=== PATIENT | male | born 1965 | race Caucasian/White ===

== ENCOUNTER → 2017-04-02 | Outpatient (REF) | LOC: M SMT 09:03 | DX: M51.36 Other intervertebral disc degeneration, lumbar region (principal) ==

== ENCOUNTER → 2020-08-22 | Outpatient (REF) ==
[~2020-08-22] MED LIST: ASPI325T; BENI20TA11; CRES20TA; KEFL500C; NEXI1CAP3; SYNT100T; prestique
--- NOTE | 2020-08-22 13:23 | REPPI ---
INDICATION: DISABILIY DIAGNOSIS DETERMINATION, LOW BACK PAIN COMPARISON: 04/02/2017 TECHNIQUE: AP, lateral, coned-down views of the lumbar spine. FINDINGS: Endplate sclerosis with marginal spurring and mild facet hypertrophy noted at multiple levels. Disc space narrowing at L5-S1 and to a lesser extent L3-4 and L4-5. No acute fracture/compression injury or subluxation. IMPRESSION: 1. Moderate multilevel degenerative spondylosis. 2. No acute fracture or dislocation. <Electronically signed by Chilango Bell > 08/22/20 [id number]
== END ==
LOC: M PLAIMG 12:54
PROVIDERS: ATTEND Internal Medicine
DX: Z02.71 Encounter for disability determination (principal); M51.36 Other intervertebral disc degeneration, lumbar region; M51.37 Other intervertebral disc degeneration, lumbosacral region

== ENCOUNTER → 2020-11-03 | Outpatient (CLI) | payer OTHER, BC ==
--- NOTE | 2020-11-03 13:38 | REP ---
INDICATION: PAIN IN RIGHT FOOT. COMPARISON: None. TECHNIQUE: Two views right calcaneus. FINDINGS: There is no evidence of fracture or dislocation. In inferior calcaneal spur measures approximately 6 mm in length. I see no other significant finding. IMPRESSION: Inferior calcaneal spurring. <Electronically signed by Darius Rangel > 11/03/20 [id number]
== END ==
LOC: M SOG 13:22
PROVIDERS: ATTEND Orthopaedic Surgery Adult Reconstructive Orthopaedic Surgery
DX: M77.31 Calcaneal spur, right foot (principal)

== ENCOUNTER → 2020-12-25 | Outpatient (CLI) | payer BC ==
[~2020-12-25] MED LIST changes: +FARX1TAB3; +GASTROGRAFIN SOLUTION 30ML (Q9963) As Ordered ONE; +GLIP10TA18; +ISOVUE-370 76% 100ML VIAL As Ordered ONE; +LEVO100T5; +LISI20TA33; +METH-1164; +OXYC1TAB23; +SIMV40TA20; +TRUL10IN
--- NOTE | 2020-12-26 17:54 | REP ---
INDICATION: THROMBOCYTOPENIA COMPARISON: None TECHNIQUE: Axial contrast enhanced images from the thoracic inlet to the upper abdomen with coronal and sagittal reformations using 100 ml Isovue 370 intravenous contrast material. Examination is followed by CT of the abdomen and pelvis. This CT examination was performed using the following dose reduction techniques: Automated exposure control, adjustment of mA and/or kv according to the patient's size, and use of iterative reconstruction technique. FINDINGS: Lung peña demonstrate acute versus chronic bibasilar fibroatelectatic changes along with mild underlying emphysematous disease. No focal consolidation or effusion. No pneumothorax. Tracheobronchial tree is patent. Few nonspecific mediastinal lymph nodes are identified. Atherosclerotic changes to the coronary arteries noted. Aorta, pulmonary vasculature, and heart/pericardium are otherwise relatively normal. Surrounding musculoskeletal structures intact and without acute osseous abnormality. IMPRESSION: Mild emphysematous disease with mild acute versus chronic basilar fibroatelectatic changes. Consider short-term 3 to 6 month follow-up as no prior examinations are available for comparison. . <Electronically signed by Chilango Bell > 12/26/20 [id number]
--- NOTE | 2020-12-26 18:02 | REP ---
INDICATION: THROMBOCYTOPENIA. COMPARISON: None TECHNIQUE: Axial contrast-enhanced images from the lung bases to the pubic symphysis using oral and 100 cc Isovue 370 intravenous contrast material. Coronal and sagittal reformations obtained along with delayed images of the abdomen. This CT examination was performed using the following dose reduction techniques: Automated exposure control, adjustment of mA and/or kv according to the patient's size, and the use of iterative reconstruction technique. FINDINGS: Hepatosteatosis along with hepatosplenomegaly noted. Pancreas, gallbladder, bilateral adrenal glands and right kidney are normal. Left kidney includes 3.3 cm and subcentimeter benign appearing cysts along with 1.1 cm isodense lesion along the posterior cortex which may represent complex proteinaceous cyst versus small mass (series 205; image 61). The enteric system including stomach, small, and large bowel appears normal. No evidence for obstruction or acute inflammatory process. Few scattered sigmoid diverticula noted without acute diverticulitis. Pelvis demonstrates normal bladder and age-appropriate prostate/seminal vesicles. No ascites. No free air. No intraperitoneal or retroperitoneal adenopathy. Abdominal aorta and vasculature appear normal. Musculoskeletal structures are intact and without acute osseous abnormality. IMPRESSION: 1. Hepatosplenomegaly and hepatosteatosis. 2. Left renal cysts along with 1.1 cm isodense left renal lesion possibly representing complex cyst versus small mass. Consider ultrasound follow-up and if necessary repeat pre and postcontrast CT of the abdomen at 6-9 months. <Electronically signed by Chilango Bell > 12/26/20 [id number]
== END ==
LOC: M RAD 13:43
PROVIDERS: ATTEND Internal Medicine Hematology & Oncology
DX: D69.6 Thrombocytopenia, unspecified (principal); K74.60 Unspecified cirrhosis of liver; K76.0 Fatty (change of) liver, not elsewhere classified; R16.2 Hepatomegaly with splenomegaly, not elsewhere classified; N28.1 Cyst of kidney, acquired
CPT/HCPCS: 71260; 74177; Q9963; Q9967

== ENCOUNTER → 2021-01-03 | Outpatient (CLI) | payer BC ==
[~2021-01-03] MED LIST changes: -GASTROGRAFIN SOLUTION 30ML (Q9963) As Ordered ONE; -ISOVUE-370 76% 100ML VIAL As Ordered ONE
[2021-01-03 18:36] LABS: HEMOGLOBIN A1c 8.2 %
== END ==
LOC: M PLALAB 10:07
PROVIDERS: ATTEND Nurse Practitioner Family
DX: E11.69 Type 2 diabetes mellitus with other specified complication (principal)

== ENCOUNTER → 2021-02-15 | Outpatient (CLI) | payer BC ==
[2021-02-15 15:26] LABS: BASO % 0.7 % (0.0-1.0); HEMATOCRIT 46.5 % (42.0-52.0); HEMOGLOBIN 15.3 g/dl (13.5-17.5); LYMPH # 1.5 10^3/uL (1.5-5.0); LYMPH % 36.6 % (24.0-44.0); MEAN CORPUSCULAR HEMOGLOBIN 29.1 pg (27.0-33.0); MEAN CORPUSCULAR HGB CONC 32.9 g/dl (32.0-36.5); MEAN CORPUSCULAR VOLUME 88.4 fl (80.0-96.0); MONO # 0.3 10^3/uL (0.0-0.8); MONO % 7.4 % (2.0-8.0); NEUTROPHILS # 2.3 10^3/uL (1.5-8.5); NEUTROPHILS % 53.8 % (36.0-66.0); PLATELET COUNT, AUTOMATED 109 10^3/uL (150-450); RED BLOOD COUNT 5.26 10^6/uL (4.30-6.10); WHITE BLOOD COUNT 4.2 10^3/uL (4.0-10.0)
[2021-02-15 16:53] LABS: ALBUMIN 3.9 GM/DL (3.2-5.2); BILIRUBIN,DIRECT 0.1 MG/DL (0.0-0.2); BILIRUBIN,TOTAL 0.5 MG/DL (0.2-1.0); HEPATITIS B CORE ANTIBODY IGM NEGATIVE (NEGATIVE); HEPATITIS B SURFACE ANTIGEN NEGATIVE (NEGATIVE); HEPATITIS C VIRUS ABY INDEX 0.1 INDEX (<0.8); IRON (FE) 92 UG/DL (65-175); PERCENT SATURATION 26.4 % (19.7-50.0); TOTAL IRON BINDING CAPACITY 348 UG/DL (250-450)
[2021-02-15 18:57] LABS: ALT/SGPT 91 U/L (12-78); TOTAL PROTEIN 7.4 GM/DL (6.4-8.2)
== END ==
LOC: M PLALAB 14:00
PROVIDERS: ATTEND Internal Medicine Gastroenterology
DX: K75.81 Nonalcoholic steatohepatitis (NASH) (principal)

== ENCOUNTER → 2021-03-28 | Outpatient (CLI) | payer BC ==
[~2021-03-28] MED LIST changes: +ESOM40CA35 PO; -FARX1TAB3; +FARX1TAB3 PO; -GLIP10TA18; +GLIP10TA18 PO; -LEVO100T5; +LEVO100T5 PO; -LISI20TA33; +LISI20TA33 PO; -METH-1164; +METH-1164 PO; -OXYC1TAB23; +OXYC1TAB23 PO; -SIMV40TA20; +SIMV40TA20 PO; -TRUL10IN; +TRUL10IN SC
== END ==
LOC: M LABSMTC 11:25
PROVIDERS: ATTEND Anesthesiology
DX: Z01.818 Encounter for other preprocedural examination (principal); Z11.52 Encounter for screening for COVID-19

== ENCOUNTER 2021-03-29 13:33 | Outpatient (CLI) | payer BC ==
[~2021-03-29] VITALS: Ht 177.8 cm; Wt 120.5 kg
[2021-03-29 13:40] VITALS: BP 161/86
[2021-03-29] MEDS ORDERED: VEDOLIZUMAB 300 MG in NS 250 ML IV ONE (14:00)
[2021-03-29 15:30] VITALS: BP 136/74
== END 2021-03-29 15:30 | disposition home or self-care (01) ==
LOC: M INFU 13:33
PROVIDERS: ATTEND Internal Medicine Gastroenterology
DX: K50.90 Crohn's disease, unspecified, without complications (principal)
CPT/HCPCS: 96365; J3380

== ENCOUNTER 2021-04-02 06:35 | Day surgery (SDC) | payer BC ==
[~2021-04-02] VITALS: Ht 177.8 cm; Wt 117.5 kg
[~2021-04-02 06:35] MED LIST changes: +NS 1,000 ML IV SCH
[2021-04-02] MEDS ORDERED: fentaNYL 100 MCG/2 ML INJECTION (J3010) As Ordered ONE (07:05)
[2021-04-02] MEDS ORDERED: LIDOCAINE 2% 100MG/5ML SDV (FOR ANES.) As Ordered ONE (07:06)
[2021-04-02] MEDS ORDERED: propofoL 500 MG/50 ML VIAL As Ordered ONE (07:06)
--- NOTE | 2021-04-02 07:57 | ROOR ---
Patient Name: Chintan Price Procedure Date: 04/02/2021 7:33 AM Date of : 1965 Age: 55 Room: [facility] Gender: Male Note Status: Finalized Procedure: Upper GI endoscopy Indications: Cirrhosis rule out esophageal varices Providers: Harjit Gorman MD Referring MD: Laxmi Olmos NP Requesting Provider: Medicines: Monitored Anesthesia Care Complications: No immediate complications. Procedure: Pre-Anesthesia Assessment: - The heart rate, respiratory rate, oxygen saturations, blood pressure, adequacy of pulmonary ventilation, and response to care were monitored throughout the procedure. The Endoscope was introduced through the mouth, and advanced to the second part of duodenum. The upper GI endoscopy was accomplished without difficulty. The patient tolerated the procedure well. Findings: The examined duodenum was normal. The entire examined stomach was normal. Four columns of non-bleeding grade II varices were found in the lower third of the esophagus,. They were medium in size. No stigmata of recent bleeding were evident and red williams signs were present. Four bands were successfully placed with complete eradication, resulting in deflation of varices. There was no bleeding during the maneuver. Impression: - Normal examined duodenum. - Normal stomach. - Non-bleeding grade II esophageal varices. Completely eradicated. Banded. - No specimens collected. Recommendation: - Repeat upper endoscopy in 1 month for retreatment. - My office will call you to reschedule the procedure. - Start/continue a Non-selective Beta Pam such as Propranolol or Nadolol, titrate to heart rate. - Use Viscous Lidocaine at 4% 5 mL PO q 4 hrs (as needed) for 1 day. - (the script was sent to your pharmacy on file) Procedure Code(s): --- Professional --- 54686, Esophagogastroduodenoscopy, flexible, transoral; with band ligation of esophageal/gastric varices Diagnosis Code(s): --- Professional --- K74.60, Unspecified cirrhosis of liver I85.10, Secondary esophageal varices without bleeding CPT copyright 2019 [employer]. All rights reserved. The codes documented in this report are preliminary and upon assistant clinical nurse manager review may be revised to meet current compliance requirements. Harjit Gorman MD Harjit Gorman MD 04/02/2021 7:57:13 AM Electronically signed by Harjit Groman MD Number of Addenda: 0 Note Initiated On: 04/02/2021 7:33 AM Estimated Blood Loss: Estimated blood loss: none.
[2021-04-02] MEDS ORDERED: propofoL 200 MG/20 ML VIAL As Ordered ONE (08:12)
[2021-04-02 08:45] VITALS: BP 143/92
--- NOTE | 2021-04-02 08:46 | ROOR ---
Patient Name: Chintan Price Procedure Date: 04/02/2021 7:35 AM Date of : 1965 Age: 55 Room: [facility] Gender: Male Note Status: Finalized Procedure: Colonoscopy Indications: Follow-up of Crohn's disease of the small bowel and colon Providers: Harjit Gorman MD Referring MD: Laxmi Olmos NP Requesting Provider: Medicines: Monitored Anesthesia Care Complications: No immediate complications. Procedure: Pre-Anesthesia Assessment: - The heart rate, respiratory rate, oxygen saturations, blood pressure, adequacy of pulmonary ventilation, and response to care were monitored throughout the procedure. The Colonoscope was introduced through the anus and advanced to 15 cm into the ileum. The colonoscopy was performed without difficulty. The patient tolerated the procedure well. The quality of the bowel preparation was good. Findings: The perianal and digital rectal examinations were normal. A scattered area of mucosa in the terminal ileum was mildly erythematous. A scattered area of mildly erythematous mucosa was found in the ascending colon and in the cecum. Internal hemorrhoids were found during retroflexion. The hemorrhoids were medium-sized. Five sessile polyps were found in the sigmoid colon and ascending colon. The polyps were diminutive in size. These polyps were removed with a cold snare. Resection and retrieval were complete. Several biopsies were obtained with cold large-capacity forceps for surveillance in the terminal ileum, as well as random biopsies in the ascending colon, several random biopsies in the transverse colon and random biopsies in the descending colon. Background biopsies were taken for histology with a cold forceps from the entire colon and colon and terminal ileum. These biopsy specimens were sent to Pathology. Impression: - Five diminutive polyps in the sigmoid colon and in the ascending colon, removed with a cold snare. Resected and retrieved. - Two 3 mm scattered erythematous spots in the terminal ileum. - biopsied - Three 3 mm scattered erythematous spots in the ascending colon and in the cecum. - biopsied - Moderate to large Internal hemorrhoids. - Biopsies performed in the terminal ileum, in the ascending colon, in the transverse colon and in the descending and sigmoid/rectum. - (I do not see any significant active inflammation in terminal ileum and colon. Crohns disease appears to be in remission.) Recommendation: - Continue present medications. (Entyvio) - Repeat colonoscopy in 3 years for surveillance. Procedure Code(s): --- Professional --- 27815, Colonoscopy, flexible; with removal of tumor(s), polyp(s), or other lesion(s) by snare technique [id number], 59, Colonoscopy, flexible; with biopsy, single or multiple Diagnosis Code(s): --- Professional --- K50.80, Crohn's disease of both small and large intestine without complications K63.5, Polyp of colon K64.8, Other hemorrhoids K63.89, Other specified diseases of intestine CPT copyright 2019 [employer]. All rights reserved. The codes documented in this report are preliminary and upon school leader review may be revised to meet current compliance requirements. Harjit Gorman MD Harjit Gorman MD 04/02/2021 8:45:42 AM Electronically signed by Harjit Gorman MD Number of Addenda: 0 Note Initiated On: 04/02/2021 7:35 AM Estimated Blood Loss: Estimated blood loss: none.
== END 2021-04-02 09:27 | disposition home or self-care (01) ==
LOC: M OPP 06:35
PROVIDERS: ATTEND Internal Medicine Gastroenterology
DX: K50.80 Crohn's disease of both small and large intestine without complications (principal); D12.6 Benign neoplasm of colon, unspecified; K64.8 Other hemorrhoids; K63.89 Other specified diseases of intestine; K74.60 Unspecified cirrhosis of liver; I85.10 Secondary esophageal varices without bleeding; Z79.899 Other long term (current) drug therapy; Z87.891 Personal history of nicotine dependence; Z79.84 Long term (current) use of oral hypoglycemic drugs
CPT/HCPCS: 43244; 45380; 45385; 88305; J3010

== ENCOUNTER → 2021-04-26 | Outpatient (CLI) | payer BC ==
[~2021-04-26] MED LIST changes: +CARV3.12 PO; +ENTY1INJ IV; +LIDO2SOL17 PO; -NS 1,000 ML IV SCH; +RA M200C4 PO
== END ==
LOC: M LABSMTC 10:46
PROVIDERS: ATTEND Anesthesiology
DX: Z20.828 Contact with and (suspected) exposure to other viral communicable diseases (principal); Z11.52 Encounter for screening for COVID-19

== ENCOUNTER 2021-05-01 06:27 | Day surgery (SDC) | payer BC ==
[~2021-05-01] VITALS: Ht 177.8 cm; Wt 116.1 kg
[~2021-05-01 06:27] MED LIST changes: +NS 1,000 ML IV ONE
[2021-05-01] MEDS ORDERED: fentaNYL 100 MCG/2 ML INJECTION (J3010) As Ordered ONE (07:18)
[2021-05-01] MEDS ORDERED: propofoL 200 MG/20 ML VIAL As Ordered ONE (07:18)
[2021-05-01] MEDS ORDERED: LIDOCAINE 2% 100MG/5ML SDV (FOR ANES.) As Ordered ONE (07:18)
[2021-05-01 08:13] VITALS: BP 175/74
== END 2021-05-01 08:14 | disposition home or self-care (01) ==
LOC: M OPP 06:27
PROVIDERS: ATTEND Internal Medicine Gastroenterology
DX: I85.00 Esophageal varices without bleeding (principal); K50.90 Crohn's disease, unspecified, without complications; K74.60 Unspecified cirrhosis of liver; Z79.891 Long term (current) use of opiate analgesic; Z79.899 Other long term (current) drug therapy; Z87.891 Personal history of nicotine dependence
CPT/HCPCS: 43244; J3010

== ENCOUNTER 2021-05-10 13:00 | Outpatient (CLI) | payer BC ==
[~2021-05-10] VITALS: Ht 208.3 cm; Wt 119.7 kg
[~2021-05-10 13:00] MED LIST changes: -NS 1,000 ML IV ONE
[2021-05-10 13:05] VITALS: BP 138/77
[2021-05-10] MEDS ORDERED: VEDOLIZUMAB 300 MG in NS 250 ML IV ONE (13:30)
[2021-05-10 14:35] VITALS: BP 147/80
== END 2021-05-10 14:50 | disposition home or self-care (01) ==
LOC: M INFU 13:00
PROVIDERS: ATTEND Internal Medicine Gastroenterology
DX: K50.90 Crohn's disease, unspecified, without complications (principal)
CPT/HCPCS: 96365; J3380

== ENCOUNTER → 2021-05-26 | Outpatient (CLI) | payer BC ==
[~2021-05-26] MED LIST changes: +HYDR-3363 PO
== END ==
LOC: M LABSMTC 10:32
PROVIDERS: ATTEND Anesthesiology
DX: Z01.818 Encounter for other preprocedural examination (principal); Z11.52 Encounter for screening for COVID-19

== ENCOUNTER 2021-05-31 11:41 | Day surgery (SDC) | payer BC ==
[~2021-05-31] VITALS: Ht 177.8 cm; Wt 115.6 kg
[~2021-05-31 11:41] MED LIST changes: +NS 1,000 ML IV ONE
[2021-05-31] MEDS ORDERED: LIDOCAINE 2% 100MG/5ML SDV (FOR ANES.) As Ordered ONE (12:59)
[2021-05-31] MEDS ORDERED: propofoL 200 MG/20 ML VIAL As Ordered ONE (13:00)
[2021-05-31] MEDS ORDERED: ePHEDrine SULFATE 25 MG/5 ML(5MG/ML) SYRINGE As Ordered ONE (13:22)
[2021-05-31] MEDS ORDERED: fentaNYL 100 MCG/2 ML INJECTION As Ordered ONE (13:41)
[2021-05-31 14:40] VITALS: BP 142/81
== END 2021-05-31 14:59 | disposition home or self-care (01) ==
LOC: M OPP 11:41
PROVIDERS: ATTEND Internal Medicine Gastroenterology
DX: K74.60 Unspecified cirrhosis of liver (principal); I85.00 Esophageal varices without bleeding; J44.9 Chronic obstructive pulmonary disease, unspecified; E11.9 Type 2 diabetes mellitus without complications; Z79.891 Long term (current) use of opiate analgesic; Z79.899 Other long term (current) drug therapy
CPT/HCPCS: 43244; J3010

== ENCOUNTER → 2021-06-27 | Outpatient (CLI) | payer BC ==
[~2021-06-27] MED LIST changes: -NS 1,000 ML IV ONE
== END ==
LOC: M LABSMTC 11:01
PROVIDERS: ATTEND Anesthesiology
DX: Z11.52 Encounter for screening for COVID-19 (principal); Z20.822 Contact with and (suspected) exposure to COVID-19

== ENCOUNTER 2021-07-02 06:48 | Day surgery (SDC) | payer BC ==
[~2021-07-02] VITALS: Ht 177.8 cm; Wt 115.7 kg
[~2021-07-02 06:48] MED LIST changes: +NS 1,000 ML IV ONE
[2021-07-02] MEDS ORDERED: LIDOCAINE 2% 100MG/5ML SDV (FOR ANES.) As Ordered ONE (07:41)
[2021-07-02] MEDS ORDERED: propofoL 200 MG/20 ML VIAL As Ordered ONE (07:41)
[2021-07-02] MEDS ORDERED: fentaNYL 100 MCG/2 ML INJECTION As Ordered ONE (07:41)
[2021-07-02 08:27] VITALS: BP 163/91
== END 2021-07-02 08:35 | disposition home or self-care (01) ==
LOC: M OPP 06:48
PROVIDERS: ATTEND Internal Medicine Gastroenterology
DX: I85.00 Esophageal varices without bleeding (principal); K74.60 Unspecified cirrhosis of liver; Z79.891 Long term (current) use of opiate analgesic; Z79.899 Other long term (current) drug therapy; Z87.891 Personal history of nicotine dependence
CPT/HCPCS: 43244; J3010

== ENCOUNTER → 2021-07-03 | Outpatient (CLI) | payer BC ==
[~2021-07-03] MED LIST changes: -NS 1,000 ML IV ONE
[2021-07-03 14:32] LABS: HEMOGLOBIN A1c 8.3 %
[2021-07-03 14:44] LABS: CREATININE, URINE 46.1 MG/DL; MALB URINE SIEMENS < 5.0 MG/L; MAU/CREAT RATIO 10.8 MCG/MG (0.0-30.0)
[2021-07-03 14:45] LABS: ALBUMIN 4.2 GM/DL (3.2-5.2); ALT/SGPT 81 U/L (12-78); BILIRUBIN,TOTAL 0.7 MG/DL (0.2-1.0); BLOOD UREA NITROGEN 11 MG/DL (7-18); CALCIUM LEVEL 8.9 MG/DL (8.5-10.1); CARBON DIOXIDE LEVEL 29 MEQ/L (21-32); CHLORIDE LEVEL 105 MEQ/L (98-107); CHOLESTEROL LEVEL 188 MG/DL (<200); CHOLESTEROL RISK RATIO 4.947 (<5); CREATININE FOR GFR 0.79 MG/DL (0.70-1.30); FREE T4 1.29 NG/DL (0.76-1.46); GLOMERULAR FILTRATION RATE > 60.0 (>56); GLUCOSE, FASTING 229 MG/DL (70-100); HDL CHOLESTEROL 38 MG/DL (>40); LDL CHOLESTEROL 73 MG/DL (<100); NON-HDL-C 150 MG/DL; POTASSIUM SERUM 4.3 MEQ/L (3.5-5.1); SODIUM LEVEL 138 MEQ/L (136-145); TOTAL PROTEIN 7.7 GM/DL (6.4-8.2); TRIGLYCERIDES LEVEL 387 MG/DL (<150)
== END ==
LOC: M PLALAB 11:06
PROVIDERS: ATTEND Nurse Practitioner Family
DX: E11.69 Type 2 diabetes mellitus with other specified complication (principal); E03.9 Hypothyroidism, unspecified; I10 Essential (primary) hypertension

== ENCOUNTER → 2021-07-13 | Outpatient (CLI) | payer BC ==
[~2021-07-13] MED LIST changes: +GASTROGRAFIN SOLUTION 30ML (Q9963) As Ordered ONE; +ISOVUE-370 76% 100ML VIAL As Ordered ONE
== END ==
LOC: M RAD 11:47
PROVIDERS: ATTEND Internal Medicine Medical Oncology
DX: J44.9 Chronic obstructive pulmonary disease, unspecified (principal); D69.6 Thrombocytopenia, unspecified
CPT/HCPCS: 71260; 74170; Q9963; Q9967

== ENCOUNTER 2021-08-30 13:41 | Outpatient (CLI) | payer BC ==
[~2021-08-30] VITALS: Ht 177.8 cm; Wt 120.0 kg
[~2021-08-30 13:41] MED LIST changes: -GASTROGRAFIN SOLUTION 30ML (Q9963) As Ordered ONE; -ISOVUE-370 76% 100ML VIAL As Ordered ONE; +TRUL0.5I SQ
[2021-08-30 13:45] VITALS: BP 124/77
[2021-08-30] MEDS ORDERED: VEDOLIZUMAB 300 MG in NS 250 ML IV ONE (14:00)
[2021-08-30 14:22] VITALS: BP 124/77
[2021-08-30 15:35] VITALS: BP 133/80
== END 2021-08-30 15:40 | disposition home or self-care (01) ==
LOC: M INFU 13:41
PROVIDERS: ATTEND Internal Medicine Gastroenterology
DX: K50.90 Crohn's disease, unspecified, without complications (principal)
CPT/HCPCS: 96365; J3380

== ENCOUNTER → 2021-09-19 | Outpatient (CLI) | payer BC ==
[2021-09-19 10:58] LABS: BASO % 0.8 % (0.0-1.0); EOS % 1.7 % (0.0-3.0); HEMATOCRIT 40.9 % (42.0-52.0); HEMOGLOBIN 13.7 g/dl (13.5-17.5); LYMPH # 0.9 10^3/uL (1.5-5.0); LYMPH % 37.1 % (24.0-44.0); MEAN CORPUSCULAR HEMOGLOBIN 29.8 pg (27.0-33.0); MEAN CORPUSCULAR HGB CONC 33.5 g/dl (32.0-36.5); MEAN CORPUSCULAR VOLUME 88.9 fl (80.0-96.0); MONO # 0.2 10^3/uL (0.0-0.8); MONO % 8.3 % (2.0-8.0); NEUTROPHILS # 1.2 10^3/uL (1.5-8.5); NEUTROPHILS % 51.7 % (36.0-66.0); WHITE BLOOD COUNT 2.4 10^3/uL (4.0-10.0)
[2021-09-19 10:59] LABS: PLATELET COUNT, AUTOMATED 84 10^3/uL (150-450)
[2021-09-19 11:14] LABS: INR 0.91; PROTHROMBIN TIME 12.7 SECONDS (12.7-14.5)
[2021-09-19 11:31] LABS: ALBUMIN 3.6 GM/DL (3.2-5.2); ALT/SGPT 73 U/L (12-78); BILIRUBIN,DIRECT 0.2 MG/DL (0.0-0.2); BILIRUBIN,TOTAL 0.5 MG/DL (0.2-1.0); BLOOD UREA NITROGEN 9 MG/DL (7-18); CALCIUM LEVEL 8.3 MG/DL (8.5-10.1); CARBON DIOXIDE LEVEL 27 MEQ/L (21-32); CHLORIDE LEVEL 107 MEQ/L (98-107); CREATININE FOR GFR 0.78 MG/DL (0.70-1.30); GLOMERULAR FILTRATION RATE > 60.0 (>56); GLUCOSE, FASTING 225 MG/DL (70-100); POTASSIUM SERUM 4.2 MEQ/L (3.5-5.1); SODIUM LEVEL 141 MEQ/L (136-145); TOTAL PROTEIN 6.8 GM/DL (6.4-8.2)
== END ==
LOC: M PLALAB 08:18
PROVIDERS: ATTEND Internal Medicine Gastroenterology
DX: K75.81 Nonalcoholic steatohepatitis (NASH) (principal); K74.60 Unspecified cirrhosis of liver

== ENCOUNTER → 2021-09-28 | Outpatient (REF) | payer BC | LOC: M LAB REF 08:18 | PROVIDERS: ATTEND Internal Medicine Gastroenterology | DX: K75.81 Nonalcoholic steatohepatitis (NASH) (principal); K50.919 Crohn's disease, unspecified, with unspecified complications; R19.7 Diarrhea, unspecified ==

== ENCOUNTER 2021-10-25 14:00 | Outpatient (CLI) | payer BC ==
[~2021-10-25] VITALS: Ht 177.8 cm; Wt 120.0 kg
[2021-10-25 13:45] VITALS: BP 124/72
[~2021-10-25 14:00] MED LIST changes: +VEDOLIZUMAB 300 MG in NS 250 ML IV ONE
[2021-10-25 14:50] VITALS: BP 121/73
== END 2021-10-25 14:55 | disposition home or self-care (01) ==
LOC: M INFU 14:00
PROVIDERS: ATTEND Internal Medicine Gastroenterology
DX: K50.90 Crohn's disease, unspecified, without complications (principal)
CPT/HCPCS: 36415; 96365; J3380

== ENCOUNTER 2021-12-20 13:50 | Outpatient (CLI) | payer BC ==
[~2021-12-20] VITALS: Ht 177.8 cm; Wt 116.5 kg
[~2021-12-20 13:50] MED LIST changes: -VEDOLIZUMAB 300 MG in NS 250 ML IV ONE
[2021-12-20 13:55] VITALS: BP 133/73
[2021-12-20] MEDS ORDERED: VEDOLIZUMAB 300 MG in NS 250 ML IV ONE (14:00)
[2021-12-20 15:00] VITALS: BP 129/69
== END 2021-12-20 15:00 | disposition home or self-care (01) ==
LOC: M INFU 13:50
PROVIDERS: ATTEND Internal Medicine Gastroenterology
DX: K51.90 Ulcerative colitis, unspecified, without complications (principal)
CPT/HCPCS: 96365; J3380

== ENCOUNTER → 2022-02-13 | Outpatient (CLI) | payer BC ==
[~2022-02-13] MED LIST changes: +METH-1164
== END ==
LOC: M PLALAB 07:22
PROVIDERS: ATTEND Internal Medicine Gastroenterology
DX: K75.81 Nonalcoholic steatohepatitis (NASH) (principal); K74.60 Unspecified cirrhosis of liver; K52.3 Indeterminate colitis

== ENCOUNTER → 2022-02-13 | Outpatient (CLI) | payer BC | LOC: M WHC 06:45 | PROVIDERS: ATTEND Internal Medicine Gastroenterology | DX: K74.60 Unspecified cirrhosis of liver (principal); K75.81 Nonalcoholic steatohepatitis (NASH) ==

== ENCOUNTER 2022-02-14 14:00 | Outpatient (CLI) | payer BC ==
[~2022-02-14] VITALS: Ht 177.8 cm; Wt 116.5 kg
[~2022-02-14 14:00] MED LIST changes: +VEDOLIZUMAB 300 MG in NS 250 ML IV ONE
[2022-02-14 14:10] VITALS: BP 148/84
[2022-02-14 15:10] VITALS: BP 141/101
== END 2022-02-14 15:10 ==
LOC: M INFU 14:00
PROVIDERS: ATTEND Internal Medicine Gastroenterology
DX: K51.90 Ulcerative colitis, unspecified, without complications (principal)
CPT/HCPCS: 96365; J3380

== ENCOUNTER → 2022-04-04 | Outpatient (REF) | payer BC ==
[~2022-04-04] MED LIST changes: -VEDOLIZUMAB 300 MG in NS 250 ML IV ONE
[2022-04-09 23:07] LABS: CALPROTECTIN STOOL 138 ug/g (0-120); PANCREATIC ELASTASE STOOL 430 (>200)
== END ==
LOC: M LAB REF 10:44
PROVIDERS: ATTEND Internal Medicine Gastroenterology
DX: K75.81 Nonalcoholic steatohepatitis (NASH) (principal); K50.919 Crohn's disease, unspecified, with unspecified complications

== ENCOUNTER 2022-04-11 13:45 | Outpatient (CLI) | payer BC ==
[~2022-04-11] VITALS: Ht 177.8 cm; Wt 116.5 kg
[2022-04-11 13:47] VITALS: BP 145/69
[2022-04-11] MEDS ORDERED: VEDOLIZUMAB 300 MG in NS 250 ML IV ONE (14:00)
[2022-04-11 14:46] VITALS: BP 112/67
== END 2022-04-11 14:45 | disposition home or self-care (01) ==
LOC: M INFU 13:45
PROVIDERS: ATTEND Internal Medicine Gastroenterology
DX: K51.90 Ulcerative colitis, unspecified, without complications (principal)
CPT/HCPCS: 96365; J3380

== ENCOUNTER → 2022-05-06 | Outpatient (CLI) | payer BC ==
[~2022-05-06] MED LIST changes: +LIDO15SO4 PO; -LIDO2SOL17 PO; +LOPE2CAP PO; -METH-1164
== END ==
LOC: M LABSMTC 09:21
PROVIDERS: ATTEND Anesthesiology
DX: Z01.812 Encounter for preprocedural laboratory examination (principal); Z11.52 Encounter for screening for COVID-19

== ENCOUNTER → 2022-05-06 | Outpatient (CLI) | payer BC ==
[~2022-05-06] MED LIST changes: +MILK500C PO
[2022-05-06 11:24] LABS: ALKALINE PHOSPHATASE 37 U/L (46-116); ALT/SGPT 50 U/L (7.0-40); AST/SGOT 35 U/L (<34); BILIRUBIN,TOTAL 0.8 MG/DL (0.3-1.2); BLOOD UREA NITROGEN 22 MG/DL (9-23); CALCIUM LEVEL 8.9 MG/DL (8.5-10.1); CARBON DIOXIDE LEVEL 26 MMOL/L (20-31); CHLORIDE LEVEL 105 MMOL/L (98-107); CHOLESTEROL LEVEL 165 MG/DL (<200); CREATININE FOR GFR 0.67 MG/DL (0.70-1.30); GLOMERULAR FILTRATION RATE > 60.0 (>56); GLUCOSE, FASTING 161 MG/DL (60-100); HDL CHOLESTEROL 37.5 MG/DL (>40); LDL CHOLESTEROL 94.7 MG/DL (<100); NON-HDL-C 128 MG/DL; POTASSIUM SERUM 4.1 MMOL/L (3.5-5.1); SODIUM LEVEL 140 MMOL/L (136-145); TOTAL PROTEIN 7.1 G/DL (5.7-8.2); TRIGLYCERIDES LEVEL 164 MG/DL (<150)
[2022-05-06 11:26] LABS: THYROID STIMULATING HORMONE 1.594 uIU/ML (0.55-4.78)
[2022-05-06 11:38] LABS: HEMOGLOBIN A1c 8.1 % (4.0-6.0)
[2022-05-06 11:40] LABS: CREATININE, URINE 120.7 MG/DL; MAU/CREAT RATIO 6.6 MCG/MG (0.0-30.0)
== END ==
LOC: M PLALAB 07:20
PROVIDERS: ATTEND Nurse Practitioner Family
DX: I10 Essential (primary) hypertension (principal)

== ENCOUNTER 2022-05-09 10:48 | Day surgery (SDC) | payer BC ==
[~2022-05-09] VITALS: Ht 177.8 cm; Wt 114.3 kg
[~2022-05-09 10:48] MED LIST changes: -MILK500C PO; +NS 1,000 ML IV ONE
[2022-05-09] MEDS ORDERED: MILK500C PO (11:45)
[2022-05-09] MEDS ORDERED: LIDOCAINE 2% 100MG/5ML SDV (FOR ANES.) As Ordered ONE (14:02)
[2022-05-09] MEDS ORDERED: fentaNYL 100 MCG/2 ML INJECTION As Ordered ONE (14:02)
[2022-05-09] MEDS ORDERED: propofoL 200 MG/20 ML VIAL As Ordered ONE (14:02)
[2022-05-09 14:30] VITALS: BP 133/76
== END 2022-05-09 14:34 | disposition home or self-care (01) ==
LOC: M OPP 10:48
PROVIDERS: ATTEND Internal Medicine Gastroenterology
DX: K74.60 Unspecified cirrhosis of liver (principal); K31.89 Other diseases of stomach and duodenum; K76.6 Portal hypertension; I85.10 Secondary esophageal varices without bleeding; I12.0 Hypertensive chronic kidney disease with stage 5 chronic kidney disease or end stage renal disease; E11.9 Type 2 diabetes mellitus without complications; E03.9 Hypothyroidism, unspecified; E78.00 Pure hypercholesterolemia, unspecified; F17.200 Nicotine dependence, unspecified, uncomplicated; K50.00 Crohn's disease of small intestine without complications; J44.9 Chronic obstructive pulmonary disease, unspecified; Z79.2 Long term (current) use of antibiotics; Z79.52 Long term (current) use of systemic steroids; Z79.84 Long term (current) use of oral hypoglycemic drugs; Z79.890 Hormone replacement therapy; Z79.899 Other long term (current) drug therapy
CPT/HCPCS: 43235; J3010

== ENCOUNTER 2022-06-06 13:50 | Outpatient (CLI) | payer BC ==
[~2022-06-06] VITALS: Ht 177.8 cm; Wt 117.0 kg
[~2022-06-06 13:50] MED LIST changes: +MILK500C PO; -NS 1,000 ML IV ONE
[2022-06-06] MEDS ORDERED: VEDOLIZUMAB 300 MG in NS 250 ML IV ONE (14:00)
[2022-06-06 14:03] VITALS: BP 148/2
[2022-06-06 15:21] VITALS: BP 168/83
== END 2022-06-06 15:20 | disposition home or self-care (01) ==
LOC: M INFU 13:50
PROVIDERS: ATTEND Internal Medicine Gastroenterology
DX: K50.90 Crohn's disease, unspecified, without complications (principal)
CPT/HCPCS: 96365; J3380

== ENCOUNTER → 2022-08-01 | Outpatient (CLI) | payer BC ==
[~2022-08-01] VITALS: Ht 177.8 cm; Wt 117.4 kg
[~2022-08-01] MED LIST changes: +DULA3PEN SQ; +LIDO15SO PO; -LIDO15SO4 PO; +VEDOLIZUMAB 300 MG in NS 250 ML IV ONE
[2022-08-01 14:00] VITALS: BP 137/76
[2022-08-01 15:01] VITALS: BP 125/74
== END ==
LOC: M INFU 14:00
PROVIDERS: ATTEND Internal Medicine Gastroenterology
DX: K50.90 Crohn's disease, unspecified, without complications (principal)
CPT/HCPCS: 96365; J3380

== ENCOUNTER → 2022-09-03 | Outpatient (CLI) | payer BC ==
[~2022-09-03] MED LIST changes: -VEDOLIZUMAB 300 MG in NS 250 ML IV ONE
[2022-09-03 08:00] LABS: BASO % 1.1 % (0.0-1.0); EOS % 1.1 % (0.0-3.0); HEMATOCRIT 42.3 % (42.0-52.0); HEMOGLOBIN 13.9 g/dl (13.5-17.5); LYMPH # 1.2 10^3/uL (1.5-5.0); LYMPH % 43.6 % (24.0-44.0); MEAN CORPUSCULAR HEMOGLOBIN 29.3 pg (27.0-33.0); MEAN CORPUSCULAR HGB CONC 32.9 g/dl (32.0-36.5); MEAN CORPUSCULAR VOLUME 89.2 fl (80.0-96.0); MONO # 0.3 10^3/uL (0.0-0.8); MONO % 9.5 % (2.0-8.0); NEUTROPHILS # 1.2 10^3/uL (1.5-8.5); NEUTROPHILS % 44.3 % (36.0-66.0); RED BLOOD COUNT 4.74 10^6/uL (4.30-6.10); WHITE BLOOD COUNT 2.6 10^3/uL (4.0-10.0)
[2022-09-03 08:02] LABS: PLATELET COUNT, AUTOMATED 87 10^3/uL (150-450)
[2022-09-03 08:26] LABS: ALBUMIN 4.1 G/DL (3.2-5.2); ALKALINE PHOSPHATASE 52 U/L (46-116); ALT/SGPT 55 U/L (7.0-40); AST/SGOT 33 U/L (<34); BILIRUBIN,DIRECT 0.1 MG/DL (<0.4); BILIRUBIN,TOTAL 0.5 MG/DL (0.3-1.2); BLOOD UREA NITROGEN 17 MG/DL (9-23); CREATININE FOR GFR 0.68 MG/DL (0.70-1.30); GLOMERULAR FILTRATION RATE > 60.0 (>56); TOTAL PROTEIN 6.7 G/DL (5.7-8.2)
== END ==
LOC: M RAD 07:20
PROVIDERS: ATTEND Internal Medicine Gastroenterology
DX: K74.60 Unspecified cirrhosis of liver (principal); D69.6 Thrombocytopenia, unspecified; K50.919 Crohn's disease, unspecified, with unspecified complications; R16.0 Hepatomegaly, not elsewhere classified

== ENCOUNTER → 2022-12-31 | Outpatient (CLI) | payer BC ==
[2022-12-31 10:46] LABS: HEMOGLOBIN A1c 8.2 % (4.0-6.0)
== END ==
LOC: M PLALAB 07:33
PROVIDERS: ATTEND Nurse Practitioner Family
DX: E11.69 Type 2 diabetes mellitus with other specified complication (principal)

== ENCOUNTER 2023-01-23 14:44 | Outpatient (CLI) | payer BC ==
[~2023-01-23] VITALS: Ht 177.8 cm; Wt 117.0 kg
[~2023-01-23 14:44] MED LIST changes: +VEDOLIZUMAB 300 MG in NS 250 ML IV ONE
[2023-01-23 14:50] VITALS: BP 159/60; O2SAT 98
[2023-01-23 16:10] VITALS: BP 165/77; O2SAT 96
== END 2023-01-23 16:15 ==
LOC: M INFU 14:44
PROVIDERS: ATTEND Internal Medicine Gastroenterology
DX: K50.90 Crohn's disease, unspecified, without complications (principal)
CPT/HCPCS: 96365; J3380

== ENCOUNTER → 2023-03-12 | Outpatient (CLI) | payer BC ==
[~2023-03-12] MED LIST changes: -VEDOLIZUMAB 300 MG in NS 250 ML IV ONE
[2023-03-12 09:36] LABS: PROTHROMBIN TIME 12.9 SECONDS (12.5-14.5)
[2023-03-12 09:49] LABS: ALBUMIN 3.7 G/DL (3.2-5.2); ALKALINE PHOSPHATASE 43 U/L (46-116); ALT/SGPT 68 U/L (7.0-40); AST/SGOT 45 U/L (<34); BILIRUBIN,DIRECT 0.2 MG/DL (<0.4); BILIRUBIN,TOTAL 0.7 MG/DL (0.3-1.2); BLOOD UREA NITROGEN 16 MG/DL (9-23); CREATININE FOR GFR 0.62 MG/DL (0.70-1.30); GLOMERULAR FILTRATION RATE > 60.0 (>56); TOTAL PROTEIN 6.8 G/DL (5.7-8.2)
== END ==
LOC: M LAB 08:20
PROVIDERS: ATTEND Internal Medicine Gastroenterology
DX: K74.60 Unspecified cirrhosis of liver (principal)

== ENCOUNTER → 2023-03-14 | Outpatient (CLI) | payer BC | LOC: M RAD 07:53 | PROVIDERS: ATTEND Internal Medicine Gastroenterology | DX: K74.60 Unspecified cirrhosis of liver (principal) ==

== ENCOUNTER → 2023-05-15 | Outpatient (CLI) | payer BC ==
[~2023-05-15] VITALS: Ht 177.8 cm; Wt 116.3 kg
[2023-05-15 13:50] VITALS: BP 129/75; O2SAT 97
[2023-05-15] MEDS: VEDOLIZUMAB 300 MG in NS 250 ML IV ONE (14:21)
[2023-05-15 15:10] VITALS: BP 124/61; O2SAT 98
== END ==
LOC: M INFU 13:36
PROVIDERS: ATTEND Internal Medicine Gastroenterology
DX: K50.90 Crohn's disease, unspecified, without complications (principal)
CPT/HCPCS: 96365; J3380

== ENCOUNTER → 2023-07-09 | Outpatient (CLI) | payer BC ==
[~2023-07-09] MED LIST changes: +BURDOCK ROOT; +DAND525C PO; +DULA4.5P; -LIDO15SO PO; +LIDO15SO8 PO
[2023-07-09 12:13] LABS: HEMOGLOBIN A1c 7.9 % (4.0-6.0)
== END ==
LOC: M LAB 10:25
PROVIDERS: ATTEND Nurse Practitioner Family
DX: E11.69 Type 2 diabetes mellitus with other specified complication (principal)

== ENCOUNTER 2023-07-10 10:17 | Day surgery (SDC) | payer BC ==
[~2023-07-10] VITALS: Ht 177.8 cm; Wt 115.9 kg
[2023-07-10] MEDS ORDERED: propofoL 200 MG/20 ML VIAL As Ordered ONE (10:29)
[2023-07-10] MEDS: NS 1,000 ML IV ONE (10:40)
[2023-07-10 10:56] VITALS: TEMP 96.9
[2023-07-10 11:15] VITALS: BP 125/67; O2SAT 93
== END 2023-07-10 11:25 | disposition home or self-care (01) ==
LOC: M OPP 10:17
PROVIDERS: ATTEND Internal Medicine Gastroenterology
DX: I85.00 Esophageal varices without bleeding (principal); R13.12 Dysphagia, oropharyngeal phase; E11.9 Type 2 diabetes mellitus without complications; G47.30 Sleep apnea, unspecified; Z99.89 Dependence on other enabling machines and devices; Z79.02 Long term (current) use of antithrombotics/antiplatelets; Z79.620 Long term (current) use of immunosuppressive biologic; Z79.84 Long term (current) use of oral hypoglycemic drugs; Z79.890 Hormone replacement therapy; Z79.891 Long term (current) use of opiate analgesic; Z79.899 Other long term (current) drug therapy

== ENCOUNTER 2023-07-14 14:00 | Outpatient (CLI) | payer BC ==
[~2023-07-14] VITALS: Ht 177.8 cm; Wt 115.9 kg
[2023-07-14 14:00] VITALS: BP 142/78; O2SAT 100
[2023-07-14] MEDS: VEDOLIZUMAB 300 MG in NS 250 ML IV ONE (14:41)
[2023-07-14 15:20] VITALS: BP 145/77; O2SAT 97
== END 2023-07-14 15:20 ==
LOC: M INFU 14:00
PROVIDERS: ATTEND Internal Medicine Gastroenterology
DX: K50.90 Crohn's disease, unspecified, without complications (principal)
CPT/HCPCS: 96365; J3380

== ENCOUNTER → 2023-07-18 | Outpatient (CLI) | payer BC | LOC: M RAD 08:01 | PROVIDERS: ATTEND Nurse Practitioner Family | DX: M25.552 Pain in left hip (principal) ==

== ENCOUNTER → 2024-06-17 | Outpatient (CLI) | payer MEDICARE, BC ==
[~2024-06-17] MED LIST changes: +GLIP-320 PO; -GLIP10TA18 PO; +LISI40TA4
[2024-06-17 11:00] LABS: EOS % 1.4 % (0.0-3.0); HEMATOCRIT 45.3 % (42.0-52.0); HEMOGLOBIN 15.2 g/dl (13.5-17.5); LYMPH # 1.2 10^3/uL (1.5-5.0); LYMPH % 41.5 % (24.0-44.0); MEAN CORPUSCULAR HEMOGLOBIN 29.5 pg (27.0-33.0); MEAN CORPUSCULAR HGB CONC 33.6 g/dl (32.0-36.5); MEAN CORPUSCULAR VOLUME 87.8 fl (80.0-96.0); MONO # 0.3 10^3/uL (0.0-0.8); MONO % 9.1 % (2.0-8.0); NEUTROPHILS # 1.3 10^3/uL (1.5-8.5); NEUTROPHILS % 46.7 % (36.0-66.0); RED BLOOD COUNT 5.16 10^6/uL (4.30-6.10); WHITE BLOOD COUNT 2.9 10^3/uL (4.0-10.0)
[2024-06-17 11:01] LABS: PLATELET COUNT, AUTOMATED 87 10^3/uL (150-450)
[2024-06-17 11:13] LABS: INR 0.89; PROTHROMBIN TIME 12.4 SECONDS (12.5-14.5)
[2024-06-17 11:53] LABS: ALKALINE PHOSPHATASE 40 U/L (40-129); ALT/SGPT 70 U/L (7.0-40); AST/SGOT 44 U/L (<34); BILIRUBIN,TOTAL 0.8 MG/DL (0.3-1.2); BLOOD UREA NITROGEN 19 MG/DL (9-23); CALCIUM LEVEL 9.3 MG/DL (8.5-10.1); CARBON DIOXIDE LEVEL 28 MMOL/L (20-31); CHLORIDE LEVEL 106 MMOL/L (98-107); CREATININE FOR GFR 0.58 MG/DL (0.70-1.30); GLOMERULAR FILTRATION RATE > 60.0 (>56); GLUCOSE, FASTING 151 MG/DL (60-100); POTASSIUM SERUM 4.9 MMOL/L (3.5-5.1); SODIUM LEVEL 143 MMOL/L (136-145); TOTAL PROTEIN 7.3 G/DL (5.7-8.2)
== END ==
LOC: M LAB 09:40
PROVIDERS: ATTEND Internal Medicine Gastroenterology
DX: K74.60 Unspecified cirrhosis of liver (principal); K50.919 Crohn's disease, unspecified, with unspecified complications

== ENCOUNTER → 2024-07-07 | Outpatient (CLI) | payer MEDICARE, BC | LOC: M RAD 07:38 | PROVIDERS: ATTEND Internal Medicine Gastroenterology | DX: K74.60 Unspecified cirrhosis of liver (principal) ==

== ENCOUNTER 2024-07-08 16:36 | Outpatient (CLI) | payer BC ==
[~2024-07-08] VITALS: Ht 177.8 cm; Wt 113.0 kg
[2024-07-08 16:45] VITALS: BP 166/81; O2SAT 97
[2024-07-08] MEDS: VEDOLIZUMAB 300 MG in NS 250 ML IV ONE (17:15)
[2024-07-08 17:50] VITALS: BP 169/84; O2SAT 96
== END 2024-07-08 17:55 ==
LOC: M INFU 16:36
PROVIDERS: ATTEND Internal Medicine Gastroenterology
DX: K50.90 Crohn's disease, unspecified, without complications (principal)
CPT/HCPCS: 96365; J3380

== ENCOUNTER 2024-07-22 11:40 | Outpatient (CLI) | payer MEDICARE, BC ==
[~2024-07-22] VITALS: Ht 177.8 cm; Wt 113.6 kg
[2024-07-22 11:40] VITALS: BP 133/63; O2SAT 98
[~2024-07-22 11:40] MED LIST changes: -LISI40TA4; +LISI40TA4 PO
[2024-07-22] MEDS: VEDOLIZUMAB 300 MG in NS 250 ML IV ONE (12:20)
[2024-07-22 13:00] VITALS: BP 116/68; O2SAT 98
[2024-07-22] MEDS ORDERED: VEDOLIZUMAB 300 MG in NS 250 ML IV ONE (17:00)
== END 2024-07-22 13:05 | disposition home or self-care (01) ==
LOC: M INFU 11:40
PROVIDERS: ATTEND Internal Medicine Gastroenterology
DX: K50.90 Crohn's disease, unspecified, without complications (principal)

== ENCOUNTER 2024-08-02 09:33 | Day surgery (SDC) | payer MEDICARE, BC ==
[~2024-08-02] VITALS: Ht 177.8 cm; Wt 110.7 kg
[~2024-08-02 09:33] MED LIST changes: +LIDOCAINE 2% 100MG/5ML SDV (FOR ANES.) As Ordered ONE; +propofoL 200 MG/20 ML VIAL As Ordered ONE
[2024-08-02] MEDS ORDERED: GLYCOPYRROLATE INJ 0.2 MG/ML 2 ML VIAL As Ordered ONE (09:49)
[2024-08-02] MEDS ORDERED: fentaNYL 100 MCG/2 ML INJECTION As Ordered ONE (11:31)
[2024-08-02 12:34] VITALS: BP 155/79; O2SAT 95
== END 2024-08-02 12:39 | disposition home or self-care (01) ==
LOC: M OPP 09:33
PROVIDERS: ATTEND Internal Medicine Gastroenterology
DX: Z12.11 Encounter for screening for malignant neoplasm of colon (principal); D12.0 Benign neoplasm of cecum; D12.4 Benign neoplasm of descending colon; K64.8 Other hemorrhoids; I85.00 Esophageal varices without bleeding; G47.30 Sleep apnea, unspecified; Z79.84 Long term (current) use of oral hypoglycemic drugs; Z79.899 Other long term (current) drug therapy; J44.9 Chronic obstructive pulmonary disease, unspecified; Z87.891 Personal history of nicotine dependence
CPT/HCPCS: 43244; 45385; 88305; J1596; J3010

== ENCOUNTER → 2024-08-05 | Outpatient (CLI) | payer MEDICARE, BC ==
[~2024-08-05] MED LIST changes: -LIDOCAINE 2% 100MG/5ML SDV (FOR ANES.) As Ordered ONE; -propofoL 200 MG/20 ML VIAL As Ordered ONE
[2024-08-05 08:56] LABS: CREATININE, URINE 92.9 MG/DL
[2024-08-05 08:57] LABS: MAU/CREAT RATIO 12.9 MCG/MG (0.0-30.0)
[2024-08-05 08:58] LABS: ALKALINE PHOSPHATASE 45 U/L (40-129); ALT/SGPT 62 U/L (7.0-40); AST/SGOT 34 U/L (<34); BILIRUBIN,TOTAL 0.6 MG/DL (0.3-1.2); BLOOD UREA NITROGEN 22 MG/DL (9-23); CALCIUM LEVEL 8.8 MG/DL (8.5-10.1); CARBON DIOXIDE LEVEL 30 MMOL/L (20-31); CHLORIDE LEVEL 104 MMOL/L (98-107); CHOLESTEROL LEVEL 178 MG/DL (<200); CHOLESTEROL RISK RATIO 4.49 (<5); CREATININE FOR GFR 0.69 MG/DL (0.70-1.30); GLOMERULAR FILTRATION RATE > 90.0 (>56); GLUCOSE, FASTING 171 MG/DL (60-100); HDL CHOLESTEROL 39.6 MG/DL (>40); LDL CHOLESTEROL 97.2 MG/DL (<100); NON-HDL-C 138.4 MG/DL; POTASSIUM SERUM 4.1 MMOL/L (3.5-5.1); SODIUM LEVEL 141 MMOL/L (136-145); TOTAL PROTEIN 7.3 G/DL (5.7-8.2); TRIGLYCERIDES LEVEL 206 MG/DL (<150)
[2024-08-05 09:00] LABS: THYROID STIMULATING HORMONE 2.309 uIU/ML (0.55-4.78)
[2024-08-05 09:03] LABS: HEMOGLOBIN A1c 7.9 % (4.0-6.0)
== END ==
LOC: M LAB 07:27
PROVIDERS: ATTEND Nurse Practitioner Family
DX: I10 Essential (primary) hypertension (principal); E03.9 Hypothyroidism, unspecified; E11.69 Type 2 diabetes mellitus with other specified complication

== ENCOUNTER 2024-08-07 09:46 | Emergency (ER) | payer MEDICARE, BC ==
[~2024-08-07] VITALS: Ht 177.8 cm; Wt 112.0 kg
[2024-08-07 10:54] LABS: VENOUS BASE EXCESS -0.9 (-2.0-2.0); VENOUS HCO3 24.3 MMOL/L (23.0-27.0); VENOUS O2 SATURATION 94.9 % (60.0-80.0); VENOUS PARTIAL PRESSURE CO2 41.9 mmHg (38.0-50.0); VENOUS PH 7.381 UNITS (7.330-7.430); VENOUS STANDARD HCO3 23.7 MMOL/L; VENOUS TOTAL CO2 25.6 MMOL/L (24.0-28.0)
[2024-08-07 11:22] LABS: INR 0.92; PROTHROMBIN TIME 12.7 SECONDS (12.5-14.5)
[2024-08-07 11:23] LABS: LIPASE 42 U/L (12-53)
[2024-08-07 11:26] LABS: ALBUMIN 4.3 G/DL (3.2-5.2); ALKALINE PHOSPHATASE 47 U/L (40-129); ALT/SGPT 56 U/L (7.0-40); AST/SGOT 31 U/L (<34); BILIRUBIN,TOTAL 0.5 MG/DL (0.3-1.2); BLOOD UREA NITROGEN 25 MG/DL (9-23); CALCIUM LEVEL 9.5 MG/DL (8.5-10.1); CARBON DIOXIDE LEVEL 25 MMOL/L (20-31); CHLORIDE LEVEL 106 MMOL/L (98-107); GLOMERULAR FILTRATION RATE > 90.0 (>56); GLUCOSE, FASTING 165 MG/DL (60-100); POTASSIUM SERUM 4.5 MMOL/L (3.5-5.1); SODIUM LEVEL 140 MMOL/L (136-145); TOTAL PROTEIN 7.8 G/DL (5.7-8.2)
[2024-08-07] MEDS: PANTOPRAZOLE 40MG VIAL IV ONE (11:26)
[2024-08-07 11:37] LABS: BASO # 0.1 10^3/uL (0.0-0.2); BASO % 1.2 % (0.0-1.0); EOS # 0.1 10^3/uL (0.0-0.5); EOS % 1.8 % (0.0-3.0); HEMATOCRIT 47.2 % (42.0-52.0); HEMOGLOBIN 15.9 g/dl (13.5-17.5); LYMPH # 1.9 10^3/uL (1.5-5.0); LYMPH % 37.7 % (24.0-44.0); MEAN CORPUSCULAR HEMOGLOBIN 29.5 pg (27.0-33.0); MEAN CORPUSCULAR HGB CONC 33.7 g/dl (32.0-36.5); MEAN CORPUSCULAR VOLUME 87.6 fl (80.0-96.0); MONO # 0.4 10^3/uL (0.0-0.8); MONO % 7.6 % (2.0-8.0); NEUTROPHILS # 2.6 10^3/uL (1.5-8.5); NEUTROPHILS % 51.5 % (36.0-66.0); PLATELET COUNT, AUTOMATED 115 10^3/uL (150-450); RED BLOOD COUNT 5.39 10^6/uL (4.30-6.10)
[2024-08-07 14:12] LABS: HEMATOCRIT 44.9 % (42.0-52.0); HEMOGLOBIN 15.3 g/dl (13.5-17.5); MEAN CORPUSCULAR HGB CONC 34.1 g/dl (32.0-36.5); WHITE BLOOD COUNT 4.5 10^3/uL (4.0-10.0)
[2024-08-07 14:42] LABS: PLATELET COUNT, AUTOMATED 95 10^3/uL (150-450)
[2024-08-07 15:15] VITALS: BP 118/84; TEMP 96.4; O2SAT 98
== END 2024-08-07 15:27 | disposition home or self-care (01) ==
LOC: M ED 09:46
DX: D69.6 Thrombocytopenia, unspecified (principal); E11.9 Type 2 diabetes mellitus without complications; I10 Essential (primary) hypertension; E78.5 Hyperlipidemia, unspecified; E03.9 Hypothyroidism, unspecified; K74.60 Unspecified cirrhosis of liver; R16.1 Splenomegaly, not elsewhere classified; Z87.891 Personal history of nicotine dependence; Z79.899 Other long term (current) drug therapy
CPT/HCPCS: 71045; 80053; 82803; 83605; 83690; 85025; 85027; 85049; 85055; 85610; 85730; 86850; 86900; 86901; 93005; 93041; 94760; 96374; 99285; J2470

== ENCOUNTER → 2024-10-06 | Outpatient (CLI) | payer BC, MEDICARE ==
[~2024-10-06] MED LIST changes: +LISI40TA10 PO; -LISI40TA4 PO
== END ==
LOC: M RAD 06:53
PROVIDERS: ATTEND Ophthalmology
DX: E11.9 Type 2 diabetes mellitus without complications (principal)

== ENCOUNTER 2024-10-28 11:22 | Outpatient (CLI) | payer MEDICARE, BC ==
[~2024-10-28] VITALS: Ht 177.8 cm; Wt 113.6 kg
[2024-10-28 11:45] VITALS: BP 131/75; O2SAT 98
[2024-10-28] MEDS: VEDOLIZUMAB 300 MG in NS 250 ML IV ONE (12:25)
[2024-10-28 13:03] VITALS: BP 143/76; O2SAT 99
[2024-11-11] MEDS ORDERED: SEMA1PEN2 (08:25)
[2024-11-11] MEDS ORDERED: SEMA0.257 (08:25)
== END 2024-10-28 13:05 | disposition home or self-care (01) ==
LOC: M INFU 11:22
PROVIDERS: ATTEND Internal Medicine Gastroenterology
DX: K50.90 Crohn's disease, unspecified, without complications (principal)
CPT/HCPCS: 96365; J3380

== ENCOUNTER → 2024-11-18 | Outpatient (CLI) | payer MEDICARE, BC ==
[~2024-11-18] MED LIST changes: +SEMA0.257; +SEMA1PEN2
[2024-11-18 12:23] LABS: INR 0.99
[2024-11-18 12:46] LABS: ALT/SGPT 81 U/L (7.0-40); AST/SGOT 47 U/L (<34); CALCIUM LEVEL 9.1 MG/DL (8.5-10.1); CARBON DIOXIDE LEVEL 29 MMOL/L (20-31); CHLORIDE LEVEL 103 MMOL/L (98-107); CREATININE FOR GFR 0.65 MG/DL (0.70-1.30); GLOMERULAR FILTRATION RATE > 90.0 (>56); POTASSIUM SERUM 4.6 MMOL/L (3.5-5.1); SODIUM LEVEL 142 MMOL/L (136-145)
== END ==
LOC: M LAB 11:37
PROVIDERS: ATTEND Internal Medicine Gastroenterology
DX: K50.919 Crohn's disease, unspecified, with unspecified complications (principal); K74.60 Unspecified cirrhosis of liver; Z11.59 Encounter for screening for other viral diseases

== ENCOUNTER → 2024-12-03 | Outpatient (CLI) | payer MEDICARE, BC | LOC: M RAD 08:52 | PROVIDERS: ATTEND Internal Medicine Gastroenterology | DX: K74.60 Unspecified cirrhosis of liver (principal); R16.2 Hepatomegaly with splenomegaly, not elsewhere classified; K76.0 Fatty (change of) liver, not elsewhere classified; R93.422 Abnormal radiologic findings on diagnostic imaging of left kidney ==

== ENCOUNTER 2024-12-23 13:14 | Outpatient (CLI) | payer MEDICARE, BC ==
[~2024-12-23] VITALS: Ht 177.8 cm; Wt 113.6 kg
[2024-12-23 13:58] VITALS: BP 120/71; O2SAT 99
[2024-12-23] MEDS: VEDOLIZUMAB 300 MG in NS 250 ML IV ONE (14:23)
== END 2024-12-23 15:03 ==
LOC: M INFU 13:14
PROVIDERS: ATTEND Internal Medicine Gastroenterology
DX: K50.90 Crohn's disease, unspecified, without complications (principal)
CPT/HCPCS: 96365; J3380

== ENCOUNTER → 2025-01-06 | Outpatient (CLI) | payer MEDICARE, BC | LOC: M RAD 07:04 | PROVIDERS: ATTEND Internal Medicine | DX: Z12.2 Encounter for screening for malignant neoplasm of respiratory organs (principal); F17.211 Nicotine dependence, cigarettes, in remission ==

== ENCOUNTER → 2025-01-20 | Outpatient (CLI) | payer MEDICARE, BC ==
[~2025-01-20] MED LIST changes: +GADOXETATE DISODIUM 2.5 MMOL/10 ML VIAL As Ordered ONE
== END ==
LOC: M RAD 14:24
PROVIDERS: ATTEND Internal Medicine Gastroenterology
DX: D37.6 Neoplasm of uncertain behavior of liver, gallbladder and bile ducts (principal); D41.00 Neoplasm of uncertain behavior of unspecified kidney; R93.2 Abnormal findings on diagnostic imaging of liver and biliary tract; N28.1 Cyst of kidney, acquired
CPT/HCPCS: 74183; A9581

== ENCOUNTER 2025-02-17 13:36 | Outpatient (CLI) | payer MEDICARE, BC ==
[~2025-02-17] VITALS: Ht 177.8 cm; Wt 113.6 kg
[~2025-02-17 13:36] MED LIST changes: -GADOXETATE DISODIUM 2.5 MMOL/10 ML VIAL As Ordered ONE
[2025-02-17 13:45] VITALS: BP 121/64; O2SAT 97
[2025-02-17] MEDS: VEDOLIZUMAB 300 MG in NS 250 ML IV ONE (14:49)
[2025-02-17 15:22] VITALS: BP 122/67; O2SAT 97
== END 2025-02-17 15:25 | disposition home or self-care (01) ==
LOC: M INFU 13:36
PROVIDERS: ATTEND Internal Medicine Gastroenterology
DX: K50.919 Crohn's disease, unspecified, with unspecified complications (principal)
CPT/HCPCS: 96365; J3380